=== PATIENT | female | born 1965 | race Caucasian/White ===

== ENCOUNTER 2024-08-25 10:32 | Emergency (ER) | payer BC, SELFPAY ==
[2024-08-25 11:40] VITALS: BP 127/86; PULSE 80; RESP 16; TEMP 36.7; O2SAT 100
[2024-08-25] MEDS: Please add drug allergy info to patient profile. 1 EACH XX (11:45)
--- OUTSIDE RECORDS SUMMARY | 2024-08-25 11:45 | XMS_ITS | Referral Summary ---
Author Organization [facility] at [facility] Address [address] [place] [address] Care Team Providers Care Radiology Services Manager Name Role Phone Tony Vaughan MD Primary Care Provider [phone] Allergies Active Allergy Reactions Criticality Noted Date Comments Dairy - All Forms And Ingredients Diarrhea,Flatulence Low 01/24/2019 Epwkbezl-Feljjlveal-Sshfusmdk Rash Medium 2018 Medications ibuprofen-famot idine 800-26.6 mg tablet Take by mouth 3 (three) times a day as needed Active milnacipran 12.5 mg (5)-25 mg(8)-50 mg(42) tablets,dose pack Take as intructed 1 each 9 Active Active Problems Problem Noted Date Diagnosed Date Acute bilateral low back pain with bilateral sci atica 01/24/2019 Chronic pain of both shoulders 01/24/2019 Neck pain 01/24/2019 Fibromyalgia 01/24/2019 Social History Tobacco Use Types Packs/Day Years Used Date Smoking Tobacco: Every Day Cigarettes Alcohol Use Standard Drinks/Week Comments Yes 0 (1 standard drink = 0.6 oz pur e alcohol) AUDIT-C Answer Date Recorded Frequency of Alcohol Consumption 2-3 times a wee k 01/24/2019 Average Number of Drinks 1 or 2 019 Frequency of Binge Drinking Not on file 01/13 Personal Safety Answer Date Recorded Getting School Help Needed Not on file 04/28 Comments Unknown Sex and Gender Information Value Date Recorded Sex Assigned at Not on file Legal 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 EXPEDITOR Gender Identity Not on file Sexual Orientation Not on file Last Filed Vital Signs Vital Sign Reading Time Taken Comments Blood Pressure 128/88 01/24/2019 2:45 PM MATERIAL EXPEDITOR Pulse 76 01/24/2019 2:45 PM MATERIAL EXPEDITOR Temperature 36.9 C (98.5 F) 01/24/2019 2:45 PM MATERIAL EXPEDITOR Respiratory Rate 18 01/24/2019 2:45 PM MATERIAL EXPEDITOR Oxygen Saturation 98% 05/19/2016 1:15 PM CDT Inhaled Oxygen Concentration - - Weight 66 kg (145 lb 9.6 oz) 01/24/2019 2:45 PM MATERIAL EXPEDITOR Height 162.6 cm (5' 4) 01/24/2019 2:45 PM MATERIAL EXPEDITOR Body Mass Index 24.99 01/24/2019 2:45 PM MATERIAL EXPEDITOR Plan of Treatment Not on file Insurance [employer] [place] Care Teams Radiology Services Manager Relationship Specialty Start Date End Date Tony Vaughan MD PCP - General Family Medicine 01/17/19
--- OUTSIDE RECORDS SUMMARY | 2024-08-25 11:45 | XMS_ITS | Clinical Summary ---
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 Gender Identity Not on file Sexual Orientation Not on file Obstetrics History Last Filed Vital Signs Vital Sign Reading Time Taken Comments Blood Pressure 128/88 01/24/2019 2:45 PM BLOW MOLD TECHNICIAN Pulse 76 01/24/2019 2:45 PM BLOW MOLD TECHNICIAN Temperature 36.9 C (98.5 F) 01/24/2019 2:45 PM BLOW MOLD TECHNICIAN Respiratory Rate 18 01/24/2019 2:45 PM BLOW MOLD TECHNICIAN Oxygen Saturation 98% 05/19/2016 1:15 PM CDT Inhaled Oxygen Concentration - - Weight 66 kg (145 lb 9.6 oz) 01/24/2019 2:45 PM BLOW MOLD TECHNICIAN Height 162.6 cm (5' 4) 01/24/2019 2:45 PM BLOW MOLD TECHNICIAN Body Mass Index 24.99 01/24/2019 2:45 PM BLOW MOLD TECHNICIAN Plan of Treatment Not on file Insurance [employer] [facility] Care Teams Corn Cooker Relationship Specialty Start Date End Date Tony Vaughan MD PCP - General Family Medicine 01/17/19
--- OUTSIDE RECORDS SUMMARY | 2024-08-25 11:45 | XMS_ITS | Encounter Summary ---
Author Organization [facility] Care Team Providers Care Manager Collection Name Role Phone Tony Vaughan MD Primary Care Provider Encounter Details Date Type Department Care Team (Latest Contact Info) Description 04/19/2016 Orders Only [facility] ProviderStacy MD [address] [place] [id number] Social History Tobacco Use Types Packs/Day Years Used Date Smoking Tobacco: Never Assessed Comments Unknown Sex and Gender Information Value Date Recorded Sex Assigned at Not on file Legal Sex Female 9:24 PM CAPTAIN WAITER Gender Identity Not on file Sexual Orientation Not on file documented as of this encounter Plan of Treatment Not on file documented as of this encounter Procedures Procedure Name Priority Date/Time Associated Diagnosis Comments CARDIOLOGY REPORT 04/19/2016 12: 00 AM CAPTAIN WAITER documented in this encounter Results * CARDIOLOGY REPORT (04/19/2016 12:00 AM CAPTAIN WAITER) Anatomical Region Laterality Modality Other Narrative 04/19/2016 12:00 AM CAPTAIN WAITER Ordered by an unspecified provider. Historical Provider [facility]E Final Result documented in this encounter Visit Diagnoses Not on filedocumented in this encounter Care Teams Manager Collection Relationship Specialty Start Date End Date Tony Vaughan MD PCP - General Family Medicine 01/17/19 documented as of this encounter
--- OUTSIDE RECORDS SUMMARY | 2024-08-25 11:45 | XMS_ITS | Clinical Summary ---
Author Organization [facility] Address [address] [place] [id number] Care Team Providers Care Contract Associate Name Role Phone Tony Vaughan MD Primary Care Provider [phone] Allergies Active Allergy Reactions Criticality Noted Date Comments Bacitracin-Polymyxin B Rash Low 04/19/2024 Social History Tobacco Use Types Packs/Day Years Used Date Smoking Tobacco: Every Day Cigarettes Tobacco Cessation:Ready to Q uit: Not Asked; Counseling Given: Not Answered Alcohol Use Standard Drinks/Week Comments Yes 0 (1 standard drink = 0.6 oz pur e alcohol) Comments Unknown Sex and Gender Information Value Date Recorded Sex Assigned at Female 04/19/2024 11:56 AM LYFT DRIVER Legal Sex Female 7:00 PM CDT Gender Identity Not on file Sexual Orientation Not on file Last Filed Vital Signs Vital Sign Reading Time Taken Comments Blood Pressure 131/74 04/19/2024 6:30 PM LYFT DRIVER Pulse 65 04/19/2024 6:30 PM LYFT DRIVER Temperature 36.4 C (97.6 F) 04/19/2024 11:50 AM LYFT DRIVER Respiratory Rate 18 04/19/2024 6:30 PM LYFT DRIVER Oxygen Saturation 100% 04/19/2024 6:30 PM LYFT DRIVER Inhaled Oxygen Concentration - - Weight 59 kg (130 lb) 04/19/2024 11:50 AM LYFT DRIVER Height 162.6 cm (5' 4) 04/19/2024 11:50 AM LYFT DRIVER Body Mass Index 22.31 04/19/2024 11:50 AM LYFT DRIVER Plan of Treatment Health Maintenance Due Date Last Done Comments Colorectal Cancer Screening Colonoscopy (10 Years) 1967 Annual Physical 12/29/1970 Hepatitis C 12/29/1985 DTaP, Tdap and Td Vaccines ( 1 - Tdap) 12/29/1986 Hepatitis B Vaccines (1 of 3 - 19+ 3-dose series) 12/29/1986 Pneumococcal Vaccine: 50+ Years (1 of 2 - PCV) 12/29/1986 Mammogram Screening 2007 Zoster Vaccines (1 of 2) 12/29/2017 COVID-19 Vaccine (3 - 2023-2 5 season) 2023 02/26/2021, 08/21/2020 Meningococcal B Vaccine Aged Out No l onger eligible based on patient's age to complete this topic Meningococcal Vaccine Aged Out No charla javan eligible based on patient's age to complete this topic RSV Immunizations Under 20 Months Aged Out No longer eligible b ased on patient's age to complete this topic Insurance Care Teams Contract Associate Relationship Specialty Start Date End Date Tony Vaughan MD [address] [facility] [place] [place] [id number] PCP - General FAMILY PRACTICE 04/19/24
--- NOTE | 2024-08-25 12:30 | ED.EYEPROB ---
HPI - Eye Problem General Chief complaint: Eye Problems Stated complaint: L eye problem Time Seen by Provider: 08/25/24 11:23 History of Present Illness HPI Narrative: Patient is a 58-year-old female who presents ER with left eye discomfort. Ongoing over last week. She got new contacts and the left eye felt different. No foreign body sensation at this time. No blurred vision. 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 No tearing. Related Data Allergies Allergy/AdvReac Type Severity Reaction Status Date / Time bacitracin (From Neosporin AdvReac Rash Verified 08/25/24 11:42 ([id number])) neomycin (From Neosporin AdvReac Rash Verified 08/25/24 11:42 ([id number])) polymyxin B (From Neosporin AdvReac Rash Verified 08/25/24 11:42 ([id number])) Review of Systems Constitutional: Constitutional: Reports no additional constitutional complaints Eyes: Eyes: Reports no additional eye complaints PMFSH Past Medical History Medical History (Updated 08/25/24 @ 18:46 by Pierre Thornton MD) Healthy female adult Surgical History Surgical History (Updated 08/25/24 @ 18:46 by Pierre Thornton MD) No pertinent past surgical history Exam Narrative: GENERAL: Well-appearing, well-nourished, and in no acute distress. HEAD: Normocephalic, atraumatic. EYES: PERRLA and EOMI. Sclera normal bilaterally poor and evaluations performed on left side no foreign body noted. Fluorescein staining without abrasion. ENT: Nares clear, no rhinorrhea or epistaxis. Mucous membranes moist. EXTREMITIES: Normal range of motion. No edema. NEURO: Alert and oriented x3. PSYCH: Normal mood and affect. Course Course Emergency Course: Educated on lack of findings. I recommend wearing glasses an artificial tears. Oral anti-inflammatories. Follow up with Ophthalmology. Vital Signs Vital signs: Vital Signs Temperature 98.0 F 08/25/24 11:40 Pulse Rate 80 08/25/24 11:40 Respiratory Rate 16 08/25/24 11:40 Blood Pressure 127/86 08/25/24 11:40 Pulse Oximetry 100 08/25/24 11:40 Oxygen Delivery Room Air 08/25/24 11:40 Temperature 97.6 F 08/25/24 12:54 Pulse Rate 63 08/25/24 12:54 Respiratory Rate 17 08/25/24 12:54 Blood Pressure 121/81 08/25/24 12:54 Pulse Oximetry 100 08/25/24 12:54 Oxygen Delivery Room Air 08/25/24 11:40 Discharge Plan Discharge Clinical Impression: Eye irritation Patient Disposition: Home Condition: Stable Instructions: Eye Pain (ED) Additional Instructions: Follow-up with your eye doctor for further evaluation. Stop wearing her contacts as they may be causing irritation. Use lubricating eye drops and take oral anti-inflammatories to help with discomfort. Patient Language: Citizen Of [place] Prescriptions: New naproxen 375 mg tablet 375 mg PO BID Qty: 14 0RF artificial tears(hypromellose) 0.3 % drops 1 drp LEFT EYE QID PRN (Reason: dry eyes) Qty: 15 0RF Follow-up/Referrals: Alexus,Tony Avendaño MD [Primary Care Provider] - 1 Week
[2024-08-25 12:54] VITALS: BP 121/81; PULSE 63; RESP 17; TEMP 36.4; O2SAT 100
== END 2024-08-25 12:56 | disposition home or self-care (01) ==
PROVIDERS: Emergency Provider Emergency Medicine; PCP Family Medicine
DX: H57.89 Other specified disorders of eye and adnexa (principal)
CPT/HCPCS: 99283